=== PATIENT | female | born 1945 | race Hispanic/Latino ===

== ENCOUNTER 2019-02-07 16:13 | Emergency (ER) | payer MEDICARE, OTHER ==
[~2019-02-07] VITALS: Ht 160 cm; Wt 57.2 kg
[~2019-02-07 16:13] MED LIST: AMLODIPINE BESYL5 MG PO; CELLCEPT500 MG PO; DIGOXIN125 MCG PO; FUROSEMIDE20 MG PO; LANTUS100 UNITS/ SQ; MAG-OXIDE400 MG PO; NOVOLOG100 UNITS/; OMEPRAZOLE40 MG PO; PROGRAF1 MG PO; TRUVADA 200 MG1 EACH PO; URSODIOL300 MG PO; VITAMIN D250000 UNIT PO; WARFARIN SODIUM5 MG PO
--- OUTSIDE RECORDS SUMMARY | 2019-02-07 16:16 | XMS REPORT | Clinical Summary ---
Author Author [facility] Organization [employer] [employer] Address Unknown Phone Unavailable Care Team Providers Care Cargo Handler Name Role Phone Asked, No Pcp PCP Unavailable Allergies Not on File Medications Not on file Active Problems Not on file Social History Date Tobacco Use Types Packs/Day Years Used Never Assessed Sex Assigned at Date Recorded Not on file Industry Job Start Date Occupation Not on file Not on file Not on file Travel End Travel History Travel Start No recent travel history available. Last Filed Vital Signs Not on file Plan of Treatment Health Maintenance Due Date Last Done Comments BREAST CANCER SCREENING 1997 COLONOSCOPY SCREENING 1997 SHINGLES VACCINES (#1) 1997 65+ PNEUMOCOCCAL VACCINE 2012 (1 of 2 - PCV13) INFLUENZA VACCINE 03/02/2019 Results Not on fileafter 02/06/2018 Insurance Type Payer Benefit Subscriber ID Effective Phone Address Plan / Dates Group Medicare MEDICARE MEDICARE xxxxxxxxxx 2005-P [place], PART A AND resent [place] B Medicaid MEDICAID MEDICAID xxxxxxxxx 2013-P resent amily (Home) [place] [address] Advance Directives Patient has advance care planning documents on file. For more information, merced goldman contact: Pablo Oswald [address] [place] [address]
--- NOTE | 2019-02-07 16:25 | NUR ---
CULTURAL LINK Jeanine WING ([id number])
--- NOTE | 2019-02-07 18:20 | NUR ---
STRAIGHT CATH INSERTED FOR UA; PT URINE OUTPUT APPROX 100 CC; UA COLLECTED AND SENT TO LAB
[2019-02-07 18:22] LABS: BASOPHILS % 0.8 % (0.0-1.0); EOSINOPHILS # (AUTO) 0.2 (0.0-0.4); EOSINOPHILS % 3.8 % (0.0-6.0); HEMATOCRIT 37.3 % (34.2-44.1); HEMOGLOBIN 12.1 g/dL (12.0-16.0); LYMPHOCYTES # (AUTO) 1.1 (1.0-3.2); LYMPHOCYTES % 20.1 % (18.0-39.1); MEAN CORPUSCULAR HEMOGLOBIN 29.5 pg (28-32); MEAN CORPUSCULAR HGB CONC 32.4 g/dL (31-35); MONOCYTES # (AUTO) 0.6 (0.2-0.8); MONOCYTES % 10.6 % (4.4-11.3); NEUTROPHILS # (AUTO) 3.4 (2.1-6.9); NEUTROPHILS % 64.3 % (38.7-80.0); PLATELET COUNT 251 x10e3/uL (140-360); RED CELL DISTRIBUTION WIDTH 14.3 % (11.7-14.4)
[2019-02-07 18:25] LABS: INR 2.64; PROTHROMBIN TIME 28.9 seconds (11.9-14.5)
[2019-02-07 18:27] LABS: BILIRUBIN,URINE NEGATIVE (NEGATIVE); CLARITY,URINE SL CLOUDY (CLEAR); COLOR,URINE YELLOW (YELLOW); KETONES,URINE NEGATIVE (NEGATIVE); LEUKOCYTE ESTERASE ,URINE NEGATIVE (NEGATIVE); NITRITE,URINE NEGATIVE (NEGATIVE); PROTEIN,URINE DIPSTICK NEGATIVE (NEGATIVE); URINE UROBILINOGEN 0.2 mg/dL (0.2 - 1)
[2019-02-07 18:35] LABS: ALBUMIN 3.5 g/dL (3.5-5.0); ALBUMIN/GLOBULIN RATIO 0.6 (0.8-2.0); ANION GAP 13.9 mmol/L (8-16); CREATININE, SERUM 1.55 mg/dL (0.57-1.11); POTASSIUM 3.9 mmol/L (3.5-5.1)
[2019-02-07 18:41] LABS: AMORPHOUS SEDIMENT,URINE MANY (FEW); BACTERIA,URINE FEW /HPF; EPITHELIAL CELLS,URINE MODERATE /LPF
[2019-02-07 18:41] LABS: CREATINE KINASE MB 1.8 ng/mL (0-5.0)
--- NOTE | 2019-02-07 18:43 | Diagnostic Imaging Report ---
EXAMINATION: CHEST SINGLE (PORTABLE) INDICATION: Feeling bad. Shortness of breath. COMPARISON: None FINDINGS: AP view TUBES and LINES: Right IJ dialysis catheter in the right atrium. Left-sided pacemaker with single lead. LUNGS: Lungs are well inflated. There are bibasilar atelectasis. There is perihilar interstitial opacities, consistent with interstitial edema. PLEURA: Tiny right pleural effusion. Possible tiny left pleural effusion. HEART AND MEDIASTINUM: Cardiac size is mildly enlarged. There are atherosclerotic calcifications within the aorta. BONES AND SOFT TISSUES: No acute osseous lesion. Soft tissues are unremarkable. UPPER ABDOMEN: No free air under the diaphragm. IMPRESSION: Fluid overload with interstitial edema and tiny right pleural effusion. Signed by: Dr. Beau Hinton M.D. on 02/07/2019 6:39 PM
--- NOTE | 2019-02-07 20:20 | NUR ---
DR. FRANKO NOEL ANSWERING SERVICE CALLED, SPOKE TO NAKUL DAMON MD
--- NOTE | 2019-02-07 21:10 | NUR ---
Transfer initiated to [facility]
[2019-02-07] MEDS ORDERED: ONDANSETRON HCL INJ 2MG/ML 2ML 2 MG/ML VIAL IV STA (21:17)
[2019-02-07] MEDS ORDERED: HYDRALAZINE HCL 20 MG/ML VIAL IV STA (22:19)
--- NOTE | 2019-02-07 22:25 | NUR ---
[facility] CALLED FOR TRANSPORT
--- NOTE | 2019-02-07 22:38 | NUR ---
report called to digna cordero at [facility].
[2019-02-07 22:47] VITALS: BP 109/50
== END 2019-02-07 22:49 | disposition other institution (70) ==
LOC: ER 16:13
DX: R06.00 Dyspnea, unspecified (principal); N19 Unspecified kidney failure; E87.79 Other fluid overload; Z99.2 Dependence on renal dialysis
CPT/HCPCS: 36415; 71045; 80053; 81001; 82150; 82550; 82553; 83690; 83735; 83880; 84484; 85025; 85610; 85730; 93005; 96374; 99284; J2405